=== PATIENT | male | born 1970 | race Caucasian/White ===

== ENCOUNTER 2016-09-28 16:03 | Emergency (ER) | payer SELFPAY ==
[2016-09-28 16:11] VITALS: BP 138/95
--- NOTE | 2016-09-28 16:37 | EDM.PDOC ---
ED HPI GENERAL MEDICAL PROBLEM - General Chief Complaint: Genitourinary Problem Stated Complaint: BLOOD IN URINE Time Seen by Provider: 09/28/16 16:22 Source of Information: Reports: Patient History Limitations: Reports: No Limitations - History of Present Illness INITIAL COMMENTS - FREE TEXT/NARRATIVE: Patient is a 46-year-old male who presents to ED complaining of dark urine. Patient states approximately 1400 hrs. today he urinated and noticed it was quite dark. Patient had been out all morning fishing but notes he has been drinking water and Gatorade. Does not feel dehydrated. Denies dizziness, fever/ chills, sob, syncopal episodes, CP, SOB, abdominal pain, or dysuria. Patient has a history of kidney stones but notes no current symptoms concerning stone. Patient has no additional past medical history. He is not taking any medications currently. Denies smoking, alcohol use, or regression drugs. States he does have a smoking history but does not currently smoke. Onset: Today Duration: Improving - Related Data Allergies Allergy/AdvReac Type Severity Reaction Status Date / Time No Known Allergies Allergy Verified 09/28/16 16:11 Home Meds: Home Meds . [No Known Home Meds] 09/28/16 [History] Past Medical History Genitourinary History: Reports: Renal Calculus Musculoskeletal History: Reports: Gout Social & Family History - Tobacco Use Smoking Status *Q: Never Smoker - Caffeine Use Caffeine Use: Reports: None - Recreational Drug Use Recreational Drug Use: No ED ROS GENERAL - Review of Systems Review Of Systems: See Below GI/Abdominal: Denies: Abdominal Pain, Nausea, Vomiting : Denies: Discharge, Dysuria, Flank Pain, Frequency, Hematuria, Pain, Urgency , Urinary Retention Musculoskeletal: Denies: Back Pain ED EXAM, RENAL/ - Physical Exam Exam: See Below Exam Limited By: No Limitations General Appearance: Alert, WD/WN, No Apparent Distress Ears: Hearing Grossly Normal Nose: Normal Inspection Throat/Mouth: Normal Voice, No Airway Compromise Neck: Normal Inspection, Supple Respiratory/Chest: No Respiratory Distress, Lungs Clear, Normal Breath Sounds, No Accessory Muscle Use Cardiovascular: Normal Peripheral Pulses, Regular Rate, Rhythm GI/Abdominal: Normal Bowel Sounds, Soft, Non-Tender, No Distention Back Exam: Normal Inspection. No: CVA Tenderness (L), CVA Tenderness (R) Neurological: Alert, Oriented, CN II-XII Intact, Normal Cognition, No Motor/ Sensory Deficits Psychiatric: Normal Affect, Normal Mood Skin Exam: Warm, Dry, Intact, Normal Color Course - Vital Signs Last Recorded V/S: Last Vital Signs Temp 98.2 F 09/28/16 16:09 Pulse 85 09/28/16 16:09 Resp 18 09/28/16 16:09 BP 138/95 H 09/28/16 16:09 Pulse Ox 99 09/28/16 16:09 - Orders/Labs/Meds Labs: Laboratory Tests 09/28/16 09/28/16 09/28/16 Range/Units 16:15 16:55 16:55 WBC 6.31 (4.23-9.07) K/mm3 RBC 5.23 (4.63-6.08) M/mm3 Hgb 15.2 (13.7-17.5) gm/L Hct 43.5 (40.1-51.0) % MCV 83.2 (79.0-92.2) fl MCH 29.1 (25.7-32.2) pg MCHC 34.9 (32.2-35.5) g/dl RDW Std Deviation 44.4 H (35.1-43.9) fL Plt Count 139 L (163-337) K/mm3 MPV 10.9 (9.4-12.3) fl Neut % (Auto) 62.9 (34.0-67.9) % Lymph % (Auto) 29.6 (21.8-53.1) % [place] % (Auto) 5.2 L (5.3-12.2) % Eos % (Auto) 1.0 (0.8-7.0) Baso % (Auto) 0.8 (0.1-1.2) % Neut # (Auto) 3.97 (1.78-5.38) K/mm3 Lymph # (Auto) 1.87 (1.32-3.57) K/mm3 [place] # (Auto) 0.33 (0.30-0.82) K/mm3 Eos # (Auto) 0.06 (0.04-0.54) K/mm3 Baso # (Auto) 0.05 (0.01-0.08) K/mm3 Sodium 145 (136-145) mEq/L Potassium 4.2 (3.5-5.1) mEq/L Chloride 111 H (98-107) mEq/L Carbon Dioxide 24 (21-32) mEq/L Anion Gap 14.2 (5-15) BUN 13 (7-18) mg/dL Creatinine 1.0 (0.7-1.3) mg/dL Est Cr Clr Drug Dosing 108.46 mL/min Estimated GFR (MDRD) > 60 (>60) mL/min BUN/Creatinine Ratio 13.0 L (14-18) Glucose 99 (74-106) mg/dL Calcium 9.2 (8.5-10.1) mg/dL Total Bilirubin 0.7 (0.2-1.0) mg/dL AST 17 (15-37) U/L ALT 50 (16-63) U/L Alkaline Phosphatase 67 (46-116) U/L Total Protein 7.0 (6.4-8.2) g/dl Albumin 3.9 (3.4-5.0) g/dl Globulin 3.1 gm/dL Albumin/Globulin Ratio 1.3 (1-2) Urine Color Dark yellow (Yellow) Urine Appearance Slt cloudy H (Clear) Urine pH 5.5 (5.0-8.0) Ur Specific [place] > or = 1.030 (1.005-1.030) Urine Protein 1+ H (Negative) Urine Glucose (UA) Negative (Negative) Urine Ketones Negative (Negative) Urine Occult Blood 3+ H (Negative) Urine Nitrite Negative (Negative) Urine Bilirubin Negative (Negative) Urine Urobilinogen 0.2 (0.2-1.0) Ur Leukocyte Esterase Negative (Negative) Urine RBC >100 H (0-5) /hpf Urine WBC 0-5 (0-5) /hpf Ur Epithelial Cells Not Reportable Ur Squamous Epith Cells 0-5 (0-5) /hpf Urine Bacteria Few (FEW) /hpf Urine Mucus Few (FEW) /hpf - Re-Assessments/Exams Free Text/Narrative Re-Assessment/Exam: 09/28/16 16:36 Ordered UA and chem 14. 09/28/16 17:39 UA revealed: 1+ protein, occult blood 3+, urine rbc's greater than 100, and no findings concerning for infection. We'll discharge patient home instructions. Patient has a history of smoking thus requires cystoscopy for further evaluation of painless hematuria. Patient is aware of this and understands. Departure - Departure Time of Disposition: 17:40 Disposition: Home, Self-Care 01 Condition: good Clinical Impression: Painless hematuria - Discharge Information Instructions: Hematuria, Adult Referrals: PCP,None [Primary Care Provider] - Shadi Warren [Physician] - Forms: ED Department Discharge Additional Instructions: UA did reveal multiple red blood cells. This is concernsing since it is painless hematuria. This requires further evaluation by a urologist to determine etiology. Call a urologists of your choice to schedule an appointment. The sooner the better. If having issues in arranging or need additional referral see see Dr. Warren primary care provider at [facility] to establish care and arrange referral. Push the fluids. Return to the E.D. for any new or worsening symptoms.
== END 2016-09-28 18:05 | disposition home or self-care (01) ==
LOC: JD.ED 16:03 → MERGE 16:03 → JD.ED 18:05
DX: R31.9 Hematuria, unspecified (principal); M10.9 Gout, unspecified
CPT/HCPCS: 36415; 80053; 81001; 85025; 99283

== ENCOUNTER 2023-12-20 08:18 | Emergency (ER) | payer BC ==
[2023-12-20] MEDS: HYDROmorphone 1 MG/ML Syringe IVPUSH ONE ×2 (08:49→10:10)
[2023-12-20] MEDS: Dextrose 5%-0.9% NaCl 1,000 ML IV SCH (08:49)
[2023-12-20] MEDS: Metoclopramide 10 MG/2 ML SDV IVPUSH ONE (08:49)
[2023-12-20] MEDS: Ketorolac 30 MG/ML SDV IVPUSH ONE (08:49)
[2023-12-20 14:32] VITALS: BP 141/98; PULSE 76
== END 2023-12-20 10:40 | disposition home or self-care (01) ==
LOC: JD.ED 08:18
DX: N23 Unspecified renal colic (principal)
CPT/HCPCS: 74176; 74176-26; 96374; 96375; 96376; 99284; 99284-25; J1170; J1885; J2765; J7042